=== PATIENT | female | born 1965 | race Caucasian/White ===

== ENCOUNTER 2020-03-12 07:49 | Observation (INO) ==
--- NOTE | 2020-02-19 16:24 | PAT Medication Instructions ---
Medication Instructions Date of Service February 19, 2020 Home Medications Vitamin D3 100 mcg PO QAM loratadine 10 mg PO QAM multivitamin 1 cap PO QAM diclofenac sodium 2 g TOPICAL UD PRN lactobacillus combination no.4 [Probiotic] 3,000 mmu cells PO DAILY STOP taking 24 hours before surgery diclofenac sodium 2 g TOPICAL UD PRN DO NOT take the morning of surgery Vitamin D3 100 mcg PO QAM loratadine 10 mg PO QAM multivitamin 1 cap PO QAM lactobacillus combination no.4 [Probiotic] 3,000 mmu cells PO DAILY OTHERWISE NOTHING TO EAT OR DRINK AFTER MIDNIGHT Other Notes If you have any questions please call us at [phone] or [phone] or [phone] or [phone]
--- NOTE | 2020-02-20 12:07 | Anesthesiology Consultation ---
Date of Service February 20, 2020 Assessment & Plan (1) Encounter for pre-operative examination: COVID Status: As of 02/19 assessment, patient denies travel to endemic area, known exposure/sick contacts, or symptoms of COVID19. Patient instructed that they and their household members must follow strict social distancing guidelines, wear a mask in public and avoid travel for 14 days prior to surgery. Preoperative COVID19 testing to be completed prior to surgery per surgeon's arra ngements. Patient made aware to self-isolate as much as possible between COVID testing and surgery. Chart Review Chart Review: Acceptable Risk for Surgery and Patient seen in Pre Admission Testing Teaching & Discussion Instructed NPO after midnight before surgery, except medications with 15 cc of water. Medication instructions provided according to the PAT guidelines. History Surgery Operation Date: 03/12/20 09:50 Proposed Procedures p Robotic Total Laparoscopic Hysterectomy - Coco Kuhn MD Height/Weight Height: 5 ft 9 in Weight: 82.5 kg Allergies Allergy/AdvReac Type Severity Reaction Status Date / Time cat dander Allergy Unknown ASTHMA Verified 02/20/20 10:46 LIKE SYMPTOMS, SOB AND WHEEZING AT TIMES Medications Home Medications Medication Instructions Recorded Confirmed Last Taken Vitamin D3 100 mcg PO QAM 12/29/19 02/20/20 01/07/20 loratadine 10 mg PO QAM 12/29/19 02/20/20 01/07/20 multivitamin 1 cap PO QAM 12/29/19 02/20/20 01/07/20 diclofenac sodium 2 g TOPICAL UD PRN 02/10/20 02/20/20 Unknown lactobacillus combination no.4 3,000 mmu cells PO DAILY 02/10/20 02/20/20 Unknown [Probiotic] Past Medical History Medical History Gastrointestinal symptoms CHRONIC ALL LIFE HX, WORSE OVER PAST FEW YRS : CONSTIPATION, DIARRHEA AT TIMES AND BLOATING Heavy menstrual bleeding REASON FOR UPCOMING PROCEDURE History of recent blood transfusion NOVEMBER 15 2019 - "4 UNITS" - [facility] Thyroid nodule THYROID NODULES/MONITORS Past Family History Family History Grandmother Family history of diabetes mellitus Denies family history of Ovarian cancer Breast cancer Past Surgical History Surgical History H/O breast biopsy H/O section H/O colonoscopy History of D&C DEC 2019 Hx of tonsillectomy Past Anesthesia History No Hx of Anesthesia Complications and No Family Hx of Anesthesia Complications History of PONV No Hx of PONV and No Hx of Motion Sickness Social History Smoking Status: Never smoker Do You Dip or Chew Tobacco: No Hx Alcohol Use: Yes Alcohol type: wine alcohol intake frequency: 0-2 drinks per day substance use type: does not use Review of Systems Pt denies any recent chest pain, shortness of breath, palpitations, cough, fever, URI, or uncontrolled acid reflux. Physical Exam Vital Signs BP: 124/82 P: 62bpm SPO2: 99% RA T: 98.3 F R: 12 ENMT Mouth: + dental restorations (few caps/crowns on molars); no chipped teeth and no loose teeth Thyromental Distance: < 3.5 Finger Breadths (3) Mallampati Class: I Tonsils surgically absent Neck normal visual inspection; neck extension not limited Respiratory normal respiratory effort Auscultation: lungs clear to auscultation bilaterally Cardiovascular Rate/Rhythm: regular rate and regular rhythm Heart Sounds: no murmur Extremities: no edema Testing Laboratory Results 02/20/20 12:18 Blood Type O Positive 02/20/20 12:18 Antibody Screen NEGATIVE 02/20/20 12:18 Electrocardiogram Date: 12/17/19 Findings: + NSR @ (61bpm)
[2020-02-20 13:38] LABS: Basophils # (auto) 0.04 K/uL (0-0.2); Basophils % (auto) 0.8 %; Eosinophils # (auto) 0.22 K/uL (0-0.5); Eosinophils % (auto) 4.2 %; Hematocrit (blood only) 42.5 % (37-47); Hemoglobin 13.1 g/dL (12.0-16.0); Lymphocytes # (auto) 1.19 K/uL (1.2-3.4); Lymphocytes % (auto) 22.6 %; Mean Corpuscular Hemoglobin 25.6 pg (25-34); Mean Corpuscular Hgb Conc 30.8 g/dL (32-36); Mean Platelet Volume 10.3 fL (7.4-10.4); Monocytes # (auto) 0.44 K/uL (0.11-0.59); Monocytes % (auto) 8.4 %; Neutrophils # (auto) 3.37 K/uL (1.4-6.5); Platelet Count 353 K/uL (130-400); RDW Coefficient of Variation 16.2 % (11.5-14.5); RDW Standard Deviation 48.9 fL (36.4-46.3); Red Blood Count 5.12 M/uL (4.2-5.4); White Blood Count 5.26 K/uL (4.8-10.8)
[~2020-03-12 07:49] MED LIST: FAMOTIDINE/PF 20 MG/2 ML VIAL IV ONE; LACTATED RINGER'S 1,000 ML IV SCH; ceFAZolin 2000MG 2,000 MG/15 ML SYR IV SCH
[2020-03-12 08:31] LABS: Basophils # (auto) 0.02 K/uL (0-0.2); Basophils % (auto) 0.4 %; Eosinophils # (auto) 0.21 K/uL (0-0.5); Eosinophils % (auto) 3.9 %; Hematocrit (blood only) 44.2 % (37-47); Hemoglobin 14.3 g/dL (12.0-16.0); Immature Granulocytes # (auto) 0.01 K/uL (0.00-0.02); Immature Granulocytes % (auto) 0.2 %; Lymphocytes # (auto) 1.32 K/uL (1.2-3.4); Lymphocytes % (auto) 24.2 %; Mean Corpuscular Hemoglobin 26.7 pg (25-34); Mean Corpuscular Volume 82.5 fL (80-100); Mean Platelet Volume 10.2 fL (7.4-10.4); Monocytes # (auto) 0.58 K/uL (0.11-0.59); Monocytes % (auto) 10.6 %; Neutrophils # (auto) 3.31 K/uL (1.4-6.5); Neutrophils % (auto) 60.7 %; Platelet Count 244 K/uL (130-400); RDW Coefficient of Variation 16.4 % (11.5-14.5); Red Blood Count 5.36 M/uL (4.2-5.4); White Blood Count 5.45 K/uL (4.8-10.8)
[2020-03-12] MEDS: LR 15ML/HR IV SCH ×2 (08:46→15:30)
[2020-03-12] MEDS ORDERED: ONDANSETRON INJ 2 MG/ML 2 ML VIAL ONE ×2 (08:53→13:15)
[2020-03-12] MEDS ORDERED: PROPOFOL IV EMULSION 10 MG/ML 20 ML VIAL IV ONE (08:53)
[2020-03-12] MEDS ORDERED: SUCCINYLCHOLINE CHLORIDE 20 MG/ML 10 ML VIAL IV ONE (08:53)
[2020-03-12] MEDS ORDERED: DEXAMETHASONE SOD INJ 4 MG/ML VIAL ONE ×2 (08:53→10:39)
[2020-03-12] MEDS ORDERED: LIDOCAINE HCL 2% 2 ML VIAL/AMP(20MG/ML) INFIL ONE (08:53)
[2020-03-12] MEDS ORDERED: NEOSTIGMINE METHYLSULFATE 5 MG/5 ML SYR ONE (08:53)
[2020-03-12] MEDS ORDERED: PHENYLEPHRINE HCL 10 MG/ML VIAL ONE (08:53)
[2020-03-12] MEDS ORDERED: GLYCOPYRROLATE 0.2 MG/ML VIAL ONE (08:53)
[2020-03-12] MEDS ORDERED: ePHEDrine sulfate 50 MG/ML AMP ONE (08:53)
[2020-03-12] MEDS ORDERED: fentaNYL citrate 100 MCG/2 ML VIAL ONE (08:54)
[2020-03-12] MEDS ORDERED: MIDAZOLAM HCL 1 MG/ML 2ML VIAL ONE (08:54)
[2020-03-12 09:01] LABS: Mean Corpuscular Hgb Conc 32.4 g/dL (32-36)
[2020-03-12] MEDS ORDERED: METOCLOPRAMIDE HCL INJ 5 MG/ML 2 ML VIAL ONE (09:03)
--- NOTE | 2020-03-12 09:10 | History & Physical Bridge Note ---
Date of Service March 12, 2020 History & Physical Bridge Note I have examined the patient, reviewed the History & Physical and in the interval since the performance of the History & Physical I have noted the following changes of clinical significance: no changes noted
[2020-03-12] MEDS ORDERED: SCOPOLAMINE 1.5 MG TDSY TD ONE (09:47)
[2020-03-12] MEDS ORDERED: ATROPINE SULFATE 0.1 MG/ML 10ML SYR IV PRN (10:01)
[2020-03-12] MEDS ORDERED: fentaNYL citrate 100 MCG/2 ML VIAL IV PRN (10:01)
[2020-03-12] MEDS ORDERED: ONDANSETRON INJ 2 MG/ML 2 ML VIAL IV PRN ×2 (10:01→13:34)
[2020-03-12] MEDS ORDERED: PROMETHAZINE HCL 6.25 MG in SODIUM CHLORIDE 0.9% 50 ML IV PRN (10:01)
[2020-03-12] MEDS ORDERED: ePHEDrine sulfate 50 MG/ML AMP IV PRN (10:01)
[2020-03-12] MEDS ORDERED: HYDROmorphone INJ 2 MG/ML SYR/VIAL ONE (10:32)
[2020-03-12] MEDS ORDERED: diphenhydrAMINE 50 MG/ML VIAL ONE (10:39)
[2020-03-12] MEDS ORDERED: ROCURONIUM BROMIDE 10 MG/ML 5 ML VIAL IV ONE ×3 (11:06→13:13)
[2020-03-12] MEDS ORDERED: METHYLENE BLUE 0.5% 10 ML VIAL ONE (11:42)
[2020-03-12] MEDS ORDERED: KETOROLAC 30 MG/ML VIAL ONE (11:51)
--- NOTE | 2020-03-12 13:29 | Operative Report ---
PG Post Operative Report Pre & Post Diagnosis Operation Date: 03/12/20 09:20 Pre-Op Diagnosis: Heavy Menses, 20-week sized Fibroid Uterus Post-Op Diagnosis: Heavy Menses, 20-week sized Fibroid Uterus, Endometriosis I identified the patient and participated in the time-out.: Yes Procedure Operation Date: 03/12/20 09:20 Actual Procedures p Robotic Total Laparoscopic Hysterectomy with Excite Procedure, Bilateral Salpingectomy, Cystoscopy(Not Applicable) - Coco Kuhn MD Surgeon Coco Kuhn MD Classified Ad Taker Aditya Estimated Blood Loss 25 Findings Consistent with Post-Op Diagnosis see dictation below Specimens Surgically resected uterus and cervix, bilateral fallopian tubes Anesthesia Type General Complications none Disposition Accompanied Patient To Recovery: Yes Disposition: Recovery Room Description of Procedure The patient was brought to the operating room and placed on the table in dorsal lithotomy position with yellofin stirrups, prepped and draped in standard sterile fashion, and a hard time out was taken prior to proceeding. The bladder was emptied via placement of stern catheter. A V-Care uterine manipulator was placed in the usual manner. Attention was then turned to the abdomen where optical entry was made above the umbilicus without complication. The abdomen was insufflated and the patient was placed in steep Trendelenburg. Under direct visualization, right and left lower quadrant ports were placed without complication. Survey of the abdomen revealed the expected 20-week sized uterus, fundus at the umbilicus, with normal ovaries and fimbriae visible bilaterally. Elevation of the uterus from the v-care allowed visualization of the cul-de-sac where endometriotic implants were noted and photographed. The robot was then docked and surgery proceeded with the surgeon at the console. The ureter was identified on each side and traced along its course into the pelvis. Each fallopian tube in turn was elevated, dissected off the mesosalpinx and detached, then retrieved via the #2 robot port. Each utero-ovarian ligament was ligated and then divided. Each round ligament was ligated and then divided. The anterior leaflets of the broad ligament were dissected to create a bladder flap which was gently mobilized downward below the colpotomy cup ridge. Each uterine artery was skeletonized, ligated, and then divided. Circumferential colpotomy was then completed following the colpotomy cup guide. The cervix and uterus were placed in the RUQ for later retrieval. The vaginal cuff was then closed using V-Tanisha suture in the typical running non-locked fashion. The needle was retrieved through a trocar, and suction/irrigation was then used to remove any debris and ensure good hemostasis at all working sites. After administration of IV Methylene Blue dye, cystoscopy was then utilized to examine the bladder dome which was free of suture or injury. The ureteral orifices were observed until a good strong jet of blue stained urine was seen from each. The bladder was then drained. The robot was then undocked, and EXCITE procedure commenced. The supra-umbilical port was replaced with a 15mm trocar over a blunt probe, then a 5mm camera was introduced through the RLQ port. The cervix and uterus were placed in an endocatch bag using a laparoscopic grasper. The bag was then opened through the supraumbilical site, and a small Kit retractor was placed inside the bag. Tissue was extracted using the EXCITE technique with a grasper and a scalpel, until all tissue was removed from the body. At intervals, the 5mm scope was used to visualize the remaining tissue in the bag and to make sure free space was available all around the bag to prevent abdominal organ injury. Once all tissue was retrieved, the bag and Kit were removed from the patient. A final laparoscopic survey of the pelvis showed good hemostasis at all working sites. The abdominal trocar sites were closed using a UR6 at the umbilical fasci a and 4-0 monocryl at each of the skin incisions. A dermabond dressing was applied to each site. A final vaginal exam ensured no materials were present in the vagina and the cuff was intact. The patient was then transferred in stable condition to the recovery room. I attest to the content of the Intraoperative Record and any orders documented therein. Any exceptions are noted below.
[2020-03-12] MEDS ORDERED: MEPERIDINE HCL 50 MG/ML CARP IV PRN (13:34)
[2020-03-12] MEDS ORDERED: SIMETHICONE 80 MG CHEW PO PRN (13:34)
[2020-03-12] MEDS ORDERED: oxyCODONE/ACETAMINOPHEN 5mg/325mg TAB PO PRN ×2 (13:34)
[2020-03-12] MEDS ORDERED: bisacodyL 10 MG SUPP PR PRN (13:34)
[2020-03-12] MEDS ORDERED: ACETAMINOPHEN 325 MG TAB PO PRN (13:34)
[2020-03-12] MEDS ORDERED: PROMETHAZINE HCL 12.5 MG in SODIUM CHLORIDE 0.9% 50 ML IV PRN (13:34)
[2020-03-12] MEDS ORDERED: KETOROLAC 30 MG/ML VIAL IV PRN (13:34)
[2020-03-12] MEDS ORDERED: MAGNESIUM HYDROXIDE SUSP 30 ML UDC PO PRN (13:34)
[2020-03-12] MEDS ORDERED: MEPERIDINE HCL 25 MG/ML CARP/VIAL IV PRN (13:34)
--- NOTE | 2020-03-12 15:12 | Anesthesiology Progress Note ---
Date of Service March 12, 2020 Anesthesia Post Procedure Vital Signs Vital Signs: Temp Pulse Pulse Resp BP BP Pulse Ox 03/12/20 14:30 36.6 C 78 16 121/74 94 03/12/20 14:20 82 16 113/62 98 03/12/20 14:10 95 H 16 120/66 98 03/12/20 14:00 99 H 16 125/65 100 03/12/20 13:53 36.2 C L 100 H 16 123/67 99 03/12/20 08:15 37.2 C 71 16 139/98 100 Transfer of Care Handoff Completed per policy Notes Mental Status: alert / awake / arousable Patient Amnestic to Procedure: Yes Nausea / Vomiting: adequately controlled Pain: adequately controlled Airway Patency, RR, SpO2: stable & adequate BP & HR: stable & adequate Hydration State: stable & adequate Anesthetic Complications: no major complications apparent
[2020-03-12] MEDS ORDERED: LACTATED RINGER'S 1,000 ML IV SCH (15:45)
[2020-03-12 18:02] LABS: Hemoglobin 12.5 g/dL (12.0-16.0)
[2020-03-12] MEDS ORDERED: DOCUSATE SODIUM 100 MG CAP PO SCH (21:00)
--- NOTE | 2020-03-13 10:53 | Discharge Summary ---
Date of Service March 13, 2020 Discharge Data Procedures Performed Operation Date: 03/12/20 09:20 Actual Procedures p Robotic Total Laparoscopic Hysterectomy with Excite Procedure, Bilateral Salpingectomy, (Not Applicable) - Coco Kuhn MD s Cystoscopy(Not Applicable) - Coco Kuhn MD Hospital Course (1) Fibroids, intramural: The patient was admitted for planned Robotic TLH/Salpingectomy/Cysto, and underwent the procedure without complication; see op report for details. She was then admitted to [facility] for postop observation. She met all milestones inclu ding ambulation, tolerating PO diet, voiding, and having well-controlled postop pain. She expressed readiness for discharge home and was allowed to leave on POD#0. Planned follow up in the office at 2 and 6 weeks per usual. Coding Level of Care Code 14619 OBS Care - Discharge Diagnoses Fibroids, intramural D25.1
== END 2020-03-12 20:35 | disposition home or self-care (01) ==
LOC: ASU 07:49 → 4N 07:49